=== PATIENT | male | born 1995 | race Caucasian/White ===

== ENCOUNTER 2018-01-02 09:47 | Emergency (ER) | payer OTHER ==
[2018-01-02 09:52] VITALS: RESP 18
--- NOTE | 2018-01-02 10:09 | CPEKG ---
Heart Rate: 86 RR Interval: 698 P-R Interval: 152 QRSD Interval: 94 QT Interval: 340 QTC Interval: 407 P [place]: 42 QRS [place]: -8 T Wave [place]: 28 EKG Severity - NORMAL ECG - EKG Impression: SINUS RHYTHM Electronically Signed By: Isra Mesa 02-Jan-2018 14:14:20
[2018-01-02 10:52] LABS: PLATELET COUNT 174 10^3/uL (150-400)
--- NOTE | 2018-01-02 10:56 | EDPHY ---
General Narrative: CHIEF COMPLAINT: Right shoulder and chest HISTORY OF PRESENT ILLNESS: Patient complains of 2 days history of right shoulder and chest pain. Started in the shoulder and spread to the right posterior shoulder, scapula and the right "lower 3 ribs." [id number] pain. No worse with exertion. No shortness of breath. No trauma. No recent travel or trauma. No extremity erythema edema or pain. Patient is concern for PE because his friend at bedside had 1 last year. He has no history of venous thrombolic event. He does not take any exogenous hormones. No known bleeding disorders in the family. No other associated complaints or modifying factors. REVIEW OF SYSTEMS: Ten systems reviewed and are negative unless otherwise noted in the HPI PCP: None SPECIALISTS: None PAST MEDICAL HISTORY: None PAST SURGICAL HISTORY: [place] teeth as a child SOCIAL HISTORY: Nonsmoker. FAMILY HISTORY: EXAMINATION General Appearance: Alert, no distress Head: normocephalic, atraumatic Eyes: Pupils equal and round, no conjunctival pallor or injection ENT, Mouth: Mucous membranes moist Neck: Normal inspection, supple, non-tender Respiratory: Lungs are clear to auscultation. No wheeze, rhonchi or crackles Cardiovascular: Regular rate and rhythm. No murmur Gastrointestinal: Obese Abdomen is soft and nontender Back: non-tender, no bony abnormalities Neurological: A&O, nonfocal, normal gait Skin: Warm and dry, no rash Extremities: Nontender, no pedal edema Psychiatric: Mood and affect normal DIFFERENTIAL DIAGNOSES: Including but not limited to pleurisy, costochondritis, pericarditis, musculoskeletal pain MDM: 10:25 a.m. Right-sided chest and shoulder pain patient be concern for PE. He has no evidence of DVT on examination. No risk factors for venous thrombolic event. He is mildly tachycardic and expresses great concern for PE. I do not suspect a PE by clinical examination, but I have ordered a D-dimer as he is very concerned. This was after discussion regarding sensitivity and specificity of the D-dimer in a low risk patient. He is not tachypneic or hypoxemic. Blood pressure is a normal limits. He is resting comfortably in no acute distress. 10:45 a.m. Chest x-ray as read by me is negative for any acute findings 10:55 a.m. Chest x-ray has been read by radiologist as no acute findings. CBC unremarkable. D-dimer pending. 11:25 a.m. D-dimer is negative. Chemistries unremarkable. I have re-evaluated the patient at this time. He is resting comfortably in no acute distress. We discussed the negative d-dimer. We discussed the negative CXR and labs. Suspect viral etiology versus musculoskeletal pain. Recommend OTC NSAIDs as discussed. We discussed contacting the on-call primary care physician as provided. We discussed ED precautions. He is comfortable this plan and discharged home stable condition. SUPERVISION: Patient was independently examined, but I discussed the case with my secondary supervising physician Dr. Mesa - Diagnostics Imaging Results: Imaging Impressions Chest X-Ray 01/02/18 10:25 Impression: Clear lungs. No explanation for right-sided chest pain. - History Smoking Status: Never smoked - Objective Vital Signs: Initial Vital Signs Temperature (C) 98.2 F 01/02/18 09:50 Heart Rate 103 H 01/02/18 09:50 Respiratory Rate 18 01/02/18 09:50 Blood Pressure 139/80 H 01/02/18 09:50 O2 Sat (%) 96 01/02/18 09:50 O2 Delivery Mode Room Air Allergies/Adverse Reactions: No Known Allergies Allergy (Unverified 01/02/18 09:52) Home Medications: Medication Instructions Recorded NK [No Known Home Meds] 01/02/18 Laboratory Results: Laboratory Results 01/02/18 10:45 01/02/18 10:45 01/02/18 01/02/18 01/02/18 10:45 10:45 10:45 WBC 8.38 10^3/uL 10^3/uL (3.80-9.50) RBC 6.19 10^6/uL 10^6/uL (4.40-6.38) Hgb 18.0 g/dL H g/dL (13.7-17.5) Hct 49.8 % % (40.0-51.0) MCV 80.5 fL L fL (81.5-99.8) MCH 29.1 pg pg (27.9-34.1) MCHC 36.1 g/dL g/dL (32.4-36.7) RDW 12.5 % % (11.5-15.2) Plt Count 174 10^3/uL 10^3/uL (150-400) MPV 10.8 fL fL (8.7-11.7) Neut % (Auto) 73.0 % % (39.3-74.2) Lymph % (Auto) 17.8 % % (15.0-45.0) Lewis % (Auto) 7.9 % % (4.5-13.0) Eos % (Auto) 0.7 % % (0.6-7.6) Baso % (Auto) 0.4 % % (0.3-1.7) Nucleat RBC Rel Count 0.0 % % (0.0-0.2) Absolute Neuts (auto) 6.12 10^3/uL 10^3/uL (1.70-6.50) Absolute Lymphs (auto) 1.49 10^3/uL 10^3/uL (1.00-3.00) Absolute Monos (auto) 0.66 10^3/uL 10^3/uL (0.30-0.80) Absolute Eos (auto) 0.06 10^3/uL 10^3/uL (0.03-0.40) Absolute Basos (auto) 0.03 10^3/uL 10^3/uL (0.02-0.10) Absolute Nucleated RBC 0.00 10^3/uL 10^3/uL (0-0.01) Immature Gran % 0.2 % % (0.0-1.1) Immature Gran # 0.02 10^3/uL 10^3/uL (0.00-0.10) D-Dimer 0.32 ug/mLFEU ug/mLFEU (0.00-0.50) Sodium 145 mEq/L mEq/L (135-145) Potassium 4.5 mEq/L mEq/L (3.5-5.2) Chloride 104 mEq/L mEq/L (97-110) Carbon Dioxide 26 mEq/l mEq/l (22-31) Anion Gap 15 mEq/L mEq/L (8-16) BUN 12 mg/dL mg/dL (7-23) Creatinine 0.8 mg/dL mg/dL (0.7-1.3) Estimated GFR > 60 Glucose 107 mg/dL H mg/dL (70-100) Calcium 9.7 mg/dL mg/dL (8.5-10.4) Departure - Departure Disposition: Home, Routine, Self-Care Clinical Impression: Chest pain Qualifiers: Chest pain type: unspecified Qualified Code(s): R07.9 - Chest pain, unspecified Shoulder pain Qualifiers: Chronicity: acute Laterality: right Qualified Code(s): M25.511 - Pain in right shoulder Condition: Good Instructions: Chest Pain (ED), Musculoskeletal Pain (ED) Additional Instructions: 1. [id number] anti-inflammatories as discussed for 5-7 days and stop 2. Contact the on-call primary care physician as provided 3. ED precautions as discussed Referrals: Jennifer Hart MD [Medical Doctor] - As per Instructions Stand Alone Forms: Work Excuse
[2018-01-02 11:44] VITALS: BP 136/82; PULSE 89; TEMP 98.1; O2SAT 95
== END 2018-01-02 11:44 | disposition home or self-care (01) ==
DX: R07.9 Chest pain, unspecified (principal); M25.511 Pain in right shoulder